=== PATIENT | female | born 1940 | race Caucasian/White ===

== ENCOUNTER → 2018-07-25 15:19 | Outpatient (CLI) | payer MEDICARE, OTHER, SELFPAY ==
[2018-07-25 16:49] LABS: Add Manual Diff / Slide Review NO; Basophils Percent Auto 0.7 % (0-2); Eosinophils Percent Auto 14.6 % (2-4); Hematocrit 38.4 % (36-46); Hemoglobin 12.6 g/dL (12.0-16.0); Lymphocytes Percent Auto 23.2 % (25-40); Mean Corpuscular HGB Conc 32.8 % (30-36); Mean Corpuscular Hemoglobin 28.9 PG (26-34); Monocytes Percent Auto 6.9 % (3-14); Neutrophils Absolute Auto 4100 /uL (3000-5900); Neutrophils Percent Auto 54.6 % (50-75); Platelet Count 233 X10^3/uL (150-400); Red Blood Cell Count 4.36 X10^6/uL (4.0-5.2); Red Cell Distribution Width 14.1 % (11.6-14.8); White Blood Cell Count 7.4 X10^3/uL (4.5-11.0)
[2018-07-25 18:11] LABS: Hemoglobin A1C% w Est Avg Glu 5.5 % (4.0-6.0)
[2018-07-25 18:24] LABS: Alanine Aminotransferase 23 IU/L (9-52); Albumin 4.7 g/dL (3.5-5.0); Albumin Globulin Ratio 1.3 (1.0-2.8); Alkaline Phosphatase 123 U/L (38-126); Aspartate Aminotransferase 17 IU/L (14-36); BUN Creatinine Ratio 17.3 (6-22); Bilirubin Total 0.3 mg/dL (0.2-1.3); Blood Urea Nitrogen 19 mg/dL (7-17); Carbon Dioxide 28 mmol/L (22-32); Chloride 105 mmol/L (98-107); Globulin 3.5 g/dL (1.7-4.1); Glucose 120 mg/dL (80-110); HEMOLYSIS < 15 (0-50); Potassium 4.1 mmol/L (3.4-5.1); Sodium 147 mmol/L (137-145); Total Protein 8.2 g/dL (6.3-8.2)
[2018-07-25 18:32] LABS: Appearance Urine UA CLEAR; Bilirubin Urine UA NEGATIVE (NEGATIVE); Color Urine UA YELLOW; Glucose Urine UA NEGATIVE (Normal); Ketones Urine UA NEGATIVE (NEGATIVE); Leukocyte Esterase Urine UA 2+ (NEGATIVE); Nitrite Urine UA Negative (Negative); Occult Blood Urine UA NEGATIVE (Negative); Protein Urine UA NEGATIVE (Negative); Specific Gravity Urine UA <=1.005 (1.000-1.035); Urobilinogen Urine UA 0.2 E.U./dL (0.2)
[2018-07-25 18:53] LABS: Thyroid Stimulating Hormone 0.08 uIU/mL (0.47-4.68)
[2018-07-25 19:25] LABS: RBC Urine 0-1/HPF (0-5/HPF)
[2018-07-25 19:26] LABS: Bacteria Urine Many (>30); Culture Indicated Urine Specimen Cultured; Renal Epithelial Cells Urine 0-1/HPF; Squamous Epithelial Cell Urine 10-30 /HPF; Transitional Epi Cells Urine 0-1/HPF (0-5/HPF); WBC Urine 10-30/HPF (0-5/HPF)
[2018-07-26 11:24] LABS: Free T3, Triiodothyronine Free 4.44 pg/mL (2.77-5.27); Free T4, Direct Thyroxine 1.09 ng/dL (0.78-2.19)
[2018-07-27 16:37] LABS: Carbamazepine Tegretol Level 5.4 mg/L (4.0-12.0)
== END ==
PROVIDERS: Family Provider Nurse Practitioner Family; PCP Family Medicine; Visit Provider Psychiatry & Neurology Psychiatry
DX: F31.13 Bipolar disorder, current episode manic without psychotic features, severe (principal); Z51.81 Encounter for therapeutic drug level monitoring; F30.9 Manic episode, unspecified; E11.9 Type 2 diabetes mellitus without complications
CPT/HCPCS: 36415; 80053; 80156; 81001; 83036; 84439; 84443; 84481; 85025; 87086

== ENCOUNTER → 2018-08-22 15:14 | Outpatient (CLI) | payer MEDICARE, OTHER, SELFPAY ==
[2018-08-22 16:19] LABS: Lithium 0.8 mmol/L (0.6-1.2)
== END ==
PROVIDERS: Family Provider Nurse Practitioner Family; PCP Family Medicine; Visit Provider Family Medicine
DX: Z51.81 Encounter for therapeutic drug level monitoring (principal)
CPT/HCPCS: 36415; 80178

== ENCOUNTER → 2019-05-01 14:02 | Oncology outpatient (ONC) | payer MEDICARE, OTHER, SELFPAY ==
[2019-05-01] MEDS: ZOLEDRONIC ACID 5 MG in SODIUM CHLORIDE 0.9% 100 ML 318.75 ML IV (14:35)
[2019-05-01 14:51] VITALS: BP 109/67; PULSE 66; RESP 18; TEMP 36.7; O2SAT 98
== END ==
LOC: ONC 14:04
PROVIDERS: Family Provider Nurse Practitioner Family; PCP Family Medicine; Visit Provider Internal Medicine
DX: M89.9 Disorder of bone, unspecified (principal)
CPT/HCPCS: 96365; J3489

== ENCOUNTER → 2020-09-25 18:58 | Outpatient (ROUT) | payer MEDICARE, OTHER, SELFPAY ==
[2020-09-25 19:39] LABS: Lithium 0.8 mmol/L (0.6-1.2)
[2020-09-25 19:40] LABS: Add Manual Diff / Slide Review NO; Basophils Absolute Auto 100 /uL (0-100); Basophils Percent Auto 1.1 % (0-2); Eosinophils Absolute Auto 500 /uL (0-450); Eosinophils Percent Auto 7.4 % (2-4); Hematocrit 38.3 % (36-46); Hemoglobin 12.7 g/dL (12.0-16.0); Lymphocytes Absolute Auto 1700 /uL (1100-4500); Lymphocytes Percent Auto 23.9 % (25-40); Mean Corpuscular HGB Conc 33.1 % (30-36); Mean Corpuscular Hemoglobin 29.8 PG (26-34); Mean Corpuscular Volume 89.9 fL (80-100); Monocytes Absolute Auto 500 /uL (0-900); Monocytes Percent Auto 7.4 % (3-14); Neutrophils Absolute Auto 4200 /uL (1500-7000); Neutrophils Percent Auto 60.2 % (50-75); Platelet Count 200 X10^3/uL (150-400); Red Blood Cell Count 4.26 X10^6/uL (4.0-5.2); Red Cell Distribution Width 14.4 % (11.6-14.8); White Blood Cell Count 6.9 X10^3/uL (4.5-11.0)
[2020-09-25 19:44] LABS: Alanine Aminotransferase 13 IU/L (<35); Albumin 4.2 g/dL (3.5-5.0); Albumin Globulin Ratio 1.2 (1.0-2.8); Alkaline Phosphatase 84 U/L (38-126); Aspartate Aminotransferase 19 IU/L (14-36); BUN Creatinine Ratio 14.9 (6-22); Bilirubin Total 0.5 mg/dL (0.2-1.3); Blood Urea Nitrogen 20 mg/dL (7-17); Calcium 11.1 mg/dL (8.4-10.2); Carbon Dioxide 29 mmol/L (22-32); Chloride 108 mmol/L (98-107); Cholesterol 200 mg/dL (140-199); Estimated Glomerular Filt Rate 38.1 mL/min (>60); Globulin 3.4 g/dL (1.7-4.1); Glucose 113 mg/dL (80-110); HDL Cholesterol 64 mg/dL (40-60); HEMOLYSIS < 15 (0-50); LDL Cholesterol Calculated 111 mg/dL (<100); Potassium 4.3 mmol/L (3.4-5.1); Sodium 140 mmol/L (137-145); Total Protein 7.6 g/dL (6.3-8.2); Triglycerides 126 mg/dL (35-150)
[2020-09-25 20:13] LABS: TSH w/ Reflex to FT4 0.48 uIU/mL (0.47-4.68)
[2020-09-29 06:37] LABS: Parathyroid Hormone Int 107 pg/mL (15-65)
[2020-09-30 13:40] LABS: Alpha 1 Globulin 0.3 g/dL (0.0-0.4); Alpha 2 Globulin 0.9 g/dL (0.4-1.0); Gamma Globulin 1.2 g/dL (0.4-1.8); Protein, Total 7.4 g/dL (6.0-8.5)
== END ==
PROVIDERS: Visit Provider Internal Medicine
DX: E78.2 Mixed hyperlipidemia (principal); F31.9 Bipolar disorder, unspecified; E83.52 Hypercalcemia
CPT/HCPCS: 80053; 80061; 80178; 83970; 84155; 84165; 84443; 85025

== ENCOUNTER → 2022-03-02 16:09 | Outpatient (CLI) | payer MEDICARE, OTHER, SELFPAY ==
[2022-03-02 17:36] LABS: Hematocrit 37.5 % (36-46); Hemoglobin 12.4 g/dL (12.0-16.0); Mean Corpuscular HGB Conc 33.2 % (30-36); Mean Corpuscular Hemoglobin 29.4 PG (26-34); Mean Corpuscular Volume 88.6 fL (80-100); Platelet Count 219 X10^3/uL (150-400); Red Blood Cell Count 4.23 X10^6/uL (4.0-5.2); Red Cell Distribution Width 14.1 % (11.6-14.8)
[2022-03-02 17:43] LABS: Lithium 0.9 mmol/L (0.6-1.2)
[2022-03-02 17:49] LABS: Alanine Aminotransferase 12 IU/L (<35); Albumin 4.6 g/dL (3.5-5.0); Albumin Globulin Ratio 1.2 (1.0-2.8); Alkaline Phosphatase 98 U/L (38-126); Aspartate Aminotransferase 19 IU/L (14-36); BUN Creatinine Ratio 14.7 (6-22); Bilirubin Total 0.5 mg/dL (0.2-1.3); Blood Urea Nitrogen 21 mg/dL (7-17); Calcium 10.8 mg/dL (8.4-10.2); Carbon Dioxide 25 mmol/L (22-32); Chloride 108 mmol/L (98-107); Cholesterol 249 mg/dL (140-199); Estimated Glomerular Filt Rate 37 mL/min (>60); Globulin 3.8 g/dL (1.7-4.1); Glucose 125 mg/dL (80-110); HDL Cholesterol 62 mg/dL (40-60); HEMOLYSIS < 15 (0-50); LDL Cholesterol Calculated 147 mg/dL (<100); Sodium 143 mmol/L (137-145); Total Protein 8.4 g/dL (6.3-8.2); Triglycerides 201 mg/dL (35-150)
[2022-03-02 18:19] LABS: TSH w/ Reflex to FT4 0.57 uIU/mL (0.47-4.68)
== END ==
PROVIDERS: PCP Internal Medicine; Referring Provider Internal Medicine; Visit Provider Internal Medicine
DX: I10 Essential (primary) hypertension (principal); E78.2 Mixed hyperlipidemia; F31.9 Bipolar disorder, unspecified; Z86.39 Personal history of other endocrine, nutritional and metabolic disease
CPT/HCPCS: 36415; 80053; 80061; 80178; 84443; 85027

== ENCOUNTER → 2022-08-25 12:23 | Outpatient (CLI) | payer MEDICARE, OTHER, SELFPAY ==
[2022-08-25 12:44] LABS: Hematocrit 38.2 % (36-46); Hemoglobin 12.4 g/dL (12.0-16.0); Mean Corpuscular HGB Conc 32.4 % (30-36); Mean Corpuscular Volume 89.6 fL (80-100); Platelet Count 219 X10^3/uL (150-400); Red Blood Cell Count 4.27 X10^6/uL (4.0-5.2); Red Cell Distribution Width 13.6 % (11.6-14.8); White Blood Cell Count 6.5 X10^3/uL (4.5-11.0)
[2022-08-25 13:05] LABS: Alanine Aminotransferase 18 IU/L (<35); Albumin 4.4 g/dL (3.5-5.0); Albumin Globulin Ratio 1.1 (1.0-2.8); Alkaline Phosphatase 102 U/L (38-126); Aspartate Aminotransferase 19 IU/L (14-36); BUN Creatinine Ratio 15.6 (6-22); Bilirubin Total 0.4 mg/dL (0.2-1.3); Blood Urea Nitrogen 22 mg/dL (7-17); Calcium 10.6 mg/dL (8.4-10.2); Carbon Dioxide 27 mmol/L (22-32); Chloride 107 mmol/L (98-107); Estimated Glomerular Filt Rate 37 mL/min (>60); Globulin 3.9 g/dL (1.7-4.1); Glucose 121 mg/dL (80-110); HEMOLYSIS < 15 (0-50); Potassium 4.6 mmol/L (3.4-5.1); Sodium 144 mmol/L (137-145); Total Protein 8.3 g/dL (6.3-8.2)
== END ==
PROVIDERS: PCP Internal Medicine; Referring Provider Internal Medicine; Visit Provider Internal Medicine
DX: E78.2 Mixed hyperlipidemia (principal); F31.9 Bipolar disorder, unspecified; I10 Essential (primary) hypertension
CPT/HCPCS: 36415; 80053; 80178; 85027

== ENCOUNTER → 2023-02-22 11:03 | Outpatient (CLI) | payer MEDICARE, OTHER, SELFPAY ==
[2023-02-22 11:40] LABS: Hematocrit 36.9 % (36-46); Hemoglobin 12.1 g/dL (12.0-16.0); Mean Corpuscular HGB Conc 32.7 % (30-36); Mean Corpuscular Hemoglobin 28.8 PG (26-34); Mean Corpuscular Volume 88.1 fL (80-100); Platelet Count 235 X10^3/uL (150-400); Red Blood Cell Count 4.19 X10^6/uL (4.0-5.2); Red Cell Distribution Width 14.1 % (11.6-14.8); White Blood Cell Count 7.5 X10^3/uL (4.5-11.0)
[2023-02-22 12:07] LABS: Cholesterol 211 mg/dL (140-199); HDL Cholesterol 62 mg/dL (40-60); LDL Cholesterol Calculated 115 mg/dL (<100); Lithium 1.3 mmol/L (0.6-1.2); Triglycerides 172 mg/dL (35-150)
[2023-02-22 12:22] LABS: Vitamin D 25 Hydroxy (D3) 50.9 ng/mL (30.0-100.0)
[2023-02-22 12:37] LABS: TSH w/ Reflex to FT4 0.07 uIU/mL (0.47-4.68)
[2023-02-22 13:29] LABS: Free T4, Direct Thyroxine 1.23 ng/dL (0.78-2.19)
[2023-02-24 16:57] LABS: Calcium 10.9 mg/dL (8.7-10.3); Parathyroid Hormone, Intact 129 pg/mL (15-65)
== END ==
PROVIDERS: PCP Internal Medicine; Referring Provider Internal Medicine; Visit Provider Internal Medicine
DX: E78.2 Mixed hyperlipidemia (principal); F31.9 Bipolar disorder, unspecified; I10 Essential (primary) hypertension; N18.32 Chronic kidney disease, stage 3b; Z86.39 Personal history of other endocrine, nutritional and metabolic disease
CPT/HCPCS: 36415; 80061; 80178; 82306; 82310; 83970; 84439; 84443; 85027

== ENCOUNTER → 2023-06-20 15:56 | Outpatient (CLI) | payer MEDICARE, OTHER, SELFPAY ==
[2023-06-20 17:51] LABS: Lithium 1.2 mmol/L (0.6-1.2)
[2023-06-20 17:55] LABS: Alanine Aminotransferase 13 IU/L (<35); Albumin 4.3 g/dL (3.5-5.0); Albumin Globulin Ratio 1.1 (1.0-2.8); Alkaline Phosphatase 100 U/L (38-126); Aspartate Aminotransferase 20 IU/L (14-36); BUN Creatinine Ratio 14.1 (6-22); Bilirubin Total 0.3 mg/dL (0.2-1.3); Blood Urea Nitrogen 23 mg/dL (7-17); Calcium 10.8 mg/dL (8.4-10.2); Carbon Dioxide 23 mmol/L (22-32); Chloride 108 mmol/L (98-107); Estimated Glomerular Filt Rate 31 mL/min (>60); Globulin 3.8 g/dL (1.7-4.1); Glucose 113 mg/dL (80-110); HEMOLYSIS < 15 (0-50); Potassium 4.3 mmol/L (3.4-5.1); Sodium 142 mmol/L (137-145); Total Protein 8.1 g/dL (6.3-8.2)
[2023-06-20 18:26] LABS: TSH w/ Reflex to FT4 0.46 uIU/mL (0.47-4.68)
[2023-06-20 18:53] LABS: Free T4, Direct Thyroxine 1.01 ng/dL (0.78-2.19)
== END ==
PROVIDERS: PCP Internal Medicine; Referring Provider Internal Medicine; Visit Provider Internal Medicine
DX: F31.9 Bipolar disorder, unspecified (principal); I10 Essential (primary) hypertension; R31.0 Gross hematuria; R79.89 Other specified abnormal findings of blood chemistry
CPT/HCPCS: 36415; 80053; 80178; 84439; 84443

== ENCOUNTER → 2024-07-09 15:14 | Outpatient (CLI) | payer MEDICARE, OTHER, SELFPAY ==
[2024-07-09 16:00] LABS: Hematocrit 36.8 % (36-46); Mean Corpuscular HGB Conc 32.6 % (30-36); Mean Corpuscular Hemoglobin 29.4 PG (26-34); Mean Corpuscular Volume 90.4 fL (80-100); Platelet Count 242 X10^3/uL (150-400); Red Blood Cell Count 4.07 X10^6/uL (4.0-5.2); White Blood Cell Count 8.8 X10^3/uL (4.5-11.0)
[2024-07-09 17:17] LABS: Lithium 1.5 mmol/L (0.6-1.2)
[2024-07-09 17:21] LABS: Alanine Aminotransferase 13 IU/L (<35); Albumin 4.2 g/dL (3.5-5.0); Albumin Globulin Ratio 1.3 (1.0-2.8); Alkaline Phosphatase 113 U/L (38-126); Aspartate Aminotransferase 19 IU/L (14-36); BUN Creatinine Ratio 14.9 (6-22); Bilirubin Total 0.5 mg/dL (0.2-1.3); Blood Urea Nitrogen 25 mg/dL (7-17); Calcium 11.7 mg/dL (8.4-10.2); Carbon Dioxide 24 mmol/L (22-32); Chloride 106 mmol/L (98-107); Estimated Glomerular Filt Rate 30 mL/min (>60); Globulin 3.3 g/dL (1.7-4.1); Glucose 110 mg/dL (80-110); HEMOLYSIS < 15 (0-50); Potassium 4.4 mmol/L (3.4-5.1); Sodium 137 mmol/L (137-145); Total Protein 7.5 g/dL (6.3-8.2)
== END ==
PROVIDERS: PCP Internal Medicine; Referring Provider Internal Medicine; Visit Provider Internal Medicine
DX: N18.32 Chronic kidney disease, stage 3b (principal); F31.9 Bipolar disorder, unspecified
CPT/HCPCS: 36415; 80053; 80178; 85027

== ENCOUNTER → 2024-07-19 12:19 | Outpatient (CLI) | payer MEDICARE, OTHER, SELFPAY ==
[2024-07-19 13:16] LABS: Alanine Aminotransferase 26 IU/L (<35); Albumin 4.3 g/dL (3.5-5.0); Albumin Globulin Ratio 1.3 (1.0-2.8); Alkaline Phosphatase 97 U/L (38-126); Aspartate Aminotransferase 22 IU/L (14-36); BUN Creatinine Ratio 25.7 (6-22); Bilirubin Total 0.4 mg/dL (0.2-1.3); Blood Urea Nitrogen 35 mg/dL (7-17); Calcium 11.3 mg/dL (8.4-10.2); Carbon Dioxide 23 mmol/L (22-32); Chloride 110 mmol/L (98-107); Estimated Glomerular Filt Rate 38 mL/min (>60); Globulin 3.3 g/dL (1.7-4.1); Glucose 130 mg/dL (80-110); HEMOLYSIS < 15 (0-50); Potassium 4.4 mmol/L (3.4-5.1); Sodium 141 mmol/L (137-145); Total Protein 7.6 g/dL (6.3-8.2)
[2024-07-19 13:21] LABS: Lithium 0.7 mmol/L (0.6-1.2)
== END ==
PROVIDERS: PCP Internal Medicine; Referring Provider Internal Medicine; Visit Provider Internal Medicine
DX: F31.9 Bipolar disorder, unspecified (principal); N18.32 Chronic kidney disease, stage 3b; Z79.899 Other long term (current) drug therapy
CPT/HCPCS: 36415; 80053; 80178